=== PATIENT | male | born 1975 | race African-American/Black ===

== ENCOUNTER 2025-02-21 20:47 | Emergency (ER) | payer OTHER, SELFPAY ==
[2025-02-21 21:00] VITALS: BP 141/101; BMI 22.4
[2025-02-21 22:10] VITALS: BP 117/81
[2025-02-21] MEDS: TORADOL 60 MG IM (23:38)
[2025-02-21 23:48] VITALS: BP 124/66
--- NOTE | 2025-02-22 00:10 | ED.GENMED ---
History of Present Illness
General
Chief Complaint: Anxiety
Source: patient and other ([facility] staff)
Time Seen by Provider: 02/21/25 22:16
History of Present Illness
History of Present Illness:
49-year-old male who presents complaining of low back pain. He also states he has been very anxious. He has been incarcerated for the last 4 days. Patient states he has been in his small cell and he is anxiety is acting up. Patient reports that
his low back pain seems to be giving him almost some spasm in his chest but states it is from his low back. He also states sometimes anxiety gives him some chest discomfort. He denies shortness of breath. He states he is an occasional drinker but
does not smoke or do drugs.
Further history from [facility] medical team states that they were concerned while he was in his cell because he seemed to be hallucinating and trying to talk to somebody on the phone despite the fact there was no phone. They then became
concerned that maybe he was having alcohol withdrawal hallucinations. The guards at bedside however did not witness any this behavior nor has he had any abnormal behavior during their time with him.
Past History
Past History
ED Past Medical History: Other (Anxiety)
Phy Exam
Physical Exam
Physical Exam:
CONSTITUTIONAL Patient alert and oriented to person, place and time. Well-appearing. Vital signs reviewed.
HEAD atraumatic, normocephalic.
EYES eyelids normal to inspection, Extraocular muscles intact, Conjunctiva normal, Sclera normal.
NECK normal range of motion, Trachea midline, no jugular venous distention.
RESPIRATORY CHEST No respiratory distress noted, Chest expansion equal, Bilateral breath sounds clear.
CARDIOVASCULAR regular rate and rhythm, Heart sounds normal.
ABDOMEN abdomen nontender, Bowel sounds normal. No distention.
BACK normal inspection, no obvious deformities
UPPER EXTREMITY range of motion normal, Motor strength normal, no cyanosis, no edema.
LOWER EXTREMITY range of motion normal, Motor strength normal, no cyanosis, no edema.
NEURO Speech normal, No focal motor deficits, [place] coma scale 15, Memory normal, Cranial Nerves intact to screening exam.
SKIN skin warm, dry, and normal in color.
Course
Orders/Labs/Results
Orders:
Orders
02/21/25 23:30
Electrocardiogram (*1) Urgent
Reason for Study: Chest Pain
EKG- Treatment ONCE
Ketorolac [Toradol] 60 mg IM NOW STA
Vital Signs
Initial and Last Documented VS:
Initial Vital Signs
Temp Pulse Resp BP Pulse Ox
99.1 F 70 16 141/101 100
02/21/25 21:00 02/21/25 21:00 02/21/25 21:00 02/21/25 21:00 02/21/25 21:00
Last Documented Vital Signs
Temp Pulse Resp BP Pulse Ox
99.1 F 59 16 124/66 97
02/21/25 21:00 02/21/25 23:48 02/21/25 23:48 02/21/25 23:48 02/21/25 23:48
MDM/Problems Addressed
Differential Diagnosis Includes:
Musculoskeletal low back pain, AAA, alcohol withdrawal, electrolyte disturbance, anxiety
MDM/Problems Addressed:
Low back pain, anxiety
*Pulse Oximetry
Patient hypoxic: no
*EKG
Interpreted by ED Provider?: Yes
Interpretation: normal
Rate: normal
Rhythm: sinus
Hubert: normal axis
Interval: normal interval
QRS Pattern: normal QRS
Ischemia: no ischemia
*Critical Care Note
Total Time (30-74mins, 75-104mins- exclusive of procedures): Not Applicable
Data Reviewed
Source: patient
Prescriptions/Medications Considered But Not Given:
Consider benzodiazepines with patient is sleeping and has no evidence of alcohol withdrawal
Patient Management
Escalation/DeEscalation of care consider admission/obs:
Patient is awake and alert and oriented. He is calm and pleasant. He is very appreciative. He appears well and has a normal exam. I do not suspect ACS or PE. Certainly do not suspect alcohol withdrawal. [facility] guards state he has been behaving
normally. Will refer back to shelter medical team for further evaluation follow-up
ED Attending Note
-
Portions of this chart may have been created with voice recognition software.� Occasional wrong word or��sound alike� substitutions may have occurred due to the inherent limitations of voice recognition software.
Discharge Plan
Departure
Patient Disposition: Home (Routine Discharge)
Date of Disposition: 02/22/25
Time of Disposition: 00:12
Patient with high blood pressure during this ER visit?: No
Discharge Problem:
Low back pain, Anxiety
Prescriptions:
No Action
No Current Medications
0
Referrals:
[facility] [Family Provider] -
Activity Restrictions/Additional Instructions:
Please follow-up with the correctional facility medical team for follow-up and reevaluation. Return immediately for chest pain, shortness of breath, abdominal pain, weakness of any kind or any other concerns.
Interventions
Interventions:
*Risk Screen - Suicide Last Done: 02/21/25 21:00
*General Assessment Last Done: 02/21/25 21:00
*Neglect/Abuse Screening Last Done: 02/21/25 21:00
*ED- Fall Risk Assessment Last Done: 02/21/25 21:00
*ED COVID-19 Vaccine History Last Done: 02/21/25 21:00
ED-Psychological Assessment Last Done: 02/21/25 21:04
Discharge Date and Time
Print Language: AZERI
== END 2025-02-22 00:27 ==
LOC: EMR 20:47
PROVIDERS: EMERGENCY PHYSICIAN Emergency Medicine
DX: M54.50 Low back pain, unspecified (principal); F41.9 Anxiety disorder, unspecified; R07.89 Other chest pain
CPT/HCPCS: 96374; 99284; 93005